=== PATIENT | female | born 1985 | race Caucasian/White ===

== ENCOUNTER 2017-05-20 09:01 | Inpatient (IN) | payer BC ==
[~2017-05-20] VITALS: Ht 167.6 cm; Wt 87.2 kg
[~2017-05-20 09:01] MED LIST: FERROUS SULFATE; METF-366 PO; PREN1TAB60 PO
[2017-05-20 09:16] VITALS: BP 129/75
[2017-05-20] MEDS ORDERED: OXYTOCIN 30U/ 0.9% NaCL 500ML 500 ML IV ONE (09:41)
[2017-05-20] MEDS ORDERED: FENTANYL PF 100 MCG/2ML IV PRN (10:00)
[2017-05-20] MEDS ORDERED: ONDANSETRON 2MG/ML, 2ML IVPush PRN (10:00)
[2017-05-20] MEDS ORDERED: FENTANYL PF 100 MCG/2ML IVPush PRN (10:00)
[2017-05-20] MEDS: LACTATED RINGERS 1,000 ML IV SCH ×4 (10:04→19:44)
[2017-05-20] MEDS ORDERED: FENTANYL/BUPIV./NS/PF 250 ML EPIDCONT SCH (11:44)
[2017-05-20] MEDS ORDERED: BUPIVACAINE/PF 0.25% ONE (11:49)
[2017-05-20] MEDS ORDERED: FENTANYL/BUPIV./NS/PF 250 ML EPIDCONT ONE (11:49)
[2017-05-20] MEDS ORDERED: NALOXONE 0.4 MG/ML, 1ML IVPush PRN (12:00)
[2017-05-20] MEDS ORDERED: LACTATED RINGERS 1,000 ML IVBOLUS PRN (12:00)
[2017-05-20] MEDS ORDERED: EPHEDRINE 50 MG/ML, 1ML IVPush PRN (12:00)
[2017-05-20] MEDS ORDERED: NEWBORN KIT ONE (12:24)
[2017-05-20] MEDS ORDERED: OXYTOCIN 30U/ 0.9% NaCL 500ML 500 ML ONE (12:25)
[2017-05-20] MEDS ORDERED: TERBUTALINE 1 MG/ML, 1ML ONE (12:50)
[2017-05-20] MEDS ORDERED: TERBUTALINE 1 MG/ML, 1ML SQ PRN (13:00)
[2017-05-20] MEDS ORDERED: LACTATED RINGERS 1,000 ML INTUTE SCH (13:00)
[2017-05-20] MEDS ORDERED: TERBUTALINE 1 MG/ML, 1ML IVPush PRN ×2 (13:00)
[2017-05-20] MEDS ORDERED: LACTATED RINGERS 1,000 ML INTUTE PRN (13:00)
[2017-05-20] MEDS: OXYTOCIN 30U/ 0.9% NaCL 500ML 500 ML IV SCH ×5 (17:52→23:36)
[2017-05-20] MEDS ORDERED: OXYcodone IR 5MG TABLET PO PRN (18:00)
[2017-05-20] MEDS ORDERED: RHOGAM FROM BLOOD BANK 1 NOTE EA IM/IV ONE (18:00)
[2017-05-20] MEDS ORDERED: ONDANSETRON 2MG/ML, 2ML IV PRN (18:00)
[2017-05-20] MEDS ORDERED: MISOPROSTOL 200 MCG TABLET PR PRN (18:00)
[2017-05-20] MEDS ORDERED: MEASLES,MUMPS&RUBELLA VACC/PF 0.5 ML SQ-VACC PRN (18:00)
[2017-05-20] MEDS: IBUPROFEN 600 MG TABLET PO PRN (21:44)
[2017-05-20 21:45] VITALS: BP 127/80
[2017-05-21] MEDS: OXYTOCIN 30U/ 0.9% NaCL 500ML 500 ML IV SCH ×2 (01:02→02:28)
[2017-05-21] MEDS: LACTATED RINGERS 1,000 ML IV SCH (01:41)
[2017-05-21 02:15] VITALS: BP 109/63
[2017-05-21 08:30] VITALS: BP 131/81
[2017-05-21] MEDS: PRENATAL VIT/IRON/FA 1 EACH TABLET PO SCH (08:44)
[2017-05-21] MEDS: IBUPROFEN 600 MG TABLET PO PRN ×2 (08:44→22:42)
[2017-05-21 12:33] VITALS: BP 134/76
[2017-05-21 19:19] VITALS: BP 112/72
[2017-05-21] MEDS: DOCUSATE 100 MG CAPSULE PO PRN (22:42)
[2017-05-22] MEDS ORDERED: IBUP200T48 PO (03:41)
[2017-05-22] MEDS ORDERED: DOCU-30 PO (03:42)
[2017-05-22 07:15] VITALS: BP 123/71
[2017-05-22] MEDS: PRENATAL VIT/IRON/FA 1 EACH TABLET PO SCH (09:57)
[2017-05-22] MEDS: DOCUSATE 100 MG CAPSULE PO PRN (09:58)
[2017-05-22] MEDS: IBUPROFEN 600 MG TABLET PO PRN (09:58)
== END 2017-05-22 12:20 | disposition home or self-care (01) | DRG 775 ==
LOC: LDOP 09:01 → LDIP 09:50 → 2NW 21:10
PROVIDERS: ADMIT Specialist; ATTEND Specialist
PROC: 10E0XZZ Delivery of Products of Conception, External Approach (ICD-10-PCS; principal; 2017-05-20)
PROC: 0W8NXZZ Division of Female Perineum, External Approach (ICD-10-PCS; 2017-05-20)
PROC: 10907ZC Drainage of Amniotic Fluid, Therapeutic from Products of Conception, Via Natural or Artificial Opening (ICD-10-PCS; 2017-05-20)
PROC: 00HU33Z Insertion of Infusion Device into Spinal Canal, Percutaneous Approach (ICD-10-PCS; 2017-05-20)
PROC: 3E0R3CZ (ICD-10-PCS; 2017-05-20)
PROC: 0T9B70Z Drainage of Bladder with Drainage Device, Via Natural or Artificial Opening (ICD-10-PCS; 2017-05-20)
DX: O80 Encounter for full-term uncomplicated delivery (principal); Z37.0 Single live birth; Z3A.39 39 weeks gestation of pregnancy
CPT/HCPCS: 36415; 81001; 82962; 85025; 86850; 86900; J3010; J7120